=== PATIENT | male | born 1960 | race Caucasian/White ===

== ENCOUNTER → 2023-04-23 11:26 | Outpatient (BNVA) | payer MEDICARE, SELFPAY | PROVIDERS: PCP Family Medicine; Visit Provider Family Medicine | DX: Z00.00 Encounter for general adult medical examination without abnormal findings (principal); M25.511 Pain in right shoulder | CPT/HCPCS: 73030; 80053; 80061; 84439; 84443; 85025 ==

== ENCOUNTER → 2023-06-09 10:09 | Outpatient (BNVA) | payer MEDICARE, SELFPAY | PROVIDERS: PCP Family Medicine; Visit Provider Internal Medicine Cardiovascular Disease | DX: R07.9 Chest pain, unspecified (principal); I73.9 Peripheral vascular disease, unspecified; R42 Dizziness and giddiness; I65.29 Occlusion and stenosis of unspecified carotid artery; I10 Essential (primary) hypertension; K21.9 Gastro-esophageal reflux disease without esophagitis; F17.200 Nicotine dependence, unspecified, uncomplicated | CPT/HCPCS: 93005; 99204 ==

== ENCOUNTER 2023-06-22 13:21 | Outpatient (CLI) | payer MEDICARE, SELFPAY ==
--- NOTE | 2023-06-22 13:30 | USCV_ITS ---
Fredy Butterfield Age: 63 Gender: M : 1960 Exam Date: 06/22/2023 13:38 Ordering Phys: Yanelis Delaney MD ([email or web address]) Technologist: JASMINA [place] [facility] [place]: Dizziness Risk Factors: Previous Vascular Surgery: Right Brachial BP: / Left Brachial BP: / Right Left Velocity (cm/s) Spectral Plaque Velocity (cm/s) Spectral Plaque Syst/Diast Broadening Syst/Diast Broadening 94.00/ 15.50 Prox CCA 115.00/ 26.40 102.50/17.10 Mid CCA 97.90 / 28.00 83.10/ 21.80 Distal CCA 69.50 / 22.10 45.40/ 15.80 Prox ICA 70.60 / 29.80 61.80/ 20.80 Mid ICA 79.40 / 33.10 54.90/ 20.20 Distal ICA 65.10 / 27.60 92.40 ECA 76.10 0.60 ICA/CCA 0.69 Antegrade Vertebral Antegrade 33.40/ 17.70 cm/s 41.90/ 17.10 cm/s Tri Subclavian Tri 79.30 92.60 CONCLUSIONS Right ICA stenosis <50%. Mild atheromatous plaque right carotid bulb/ICA. Left ICA stenosis <50%. Mild atheromatous plaque left carotid bulb/ICA. Normal antegrade Doppler flow noted in the right vertebral artery. Normal antegrade Doppler flow noted in the left vertebral artery. Salty Monahan MD (Electronically Signed) Final Date: 23 June 2023 13:26 S
--- NOTE | 2023-06-22 15:00 | USCV_ITS ---
Fredy Butterfield Age: 63 Gender: M : 1960 Exam Date: 06/22/2023 13:38 Ordering Phys: Yanelis Delaney MD ([email or web address]) Technologist: Exam Location: [facility] [place] Indication: Leg Pain. RIGHT LEFT Brachial 106.00 mmHg Brachial 106.00 mmHg Pressure (mmHg) Waveform Pressure (mmHg) Waveform 100.00 MECHATRONICS TECHNOLOGIST 116.00 100.00 DPA 111.00 0.94 Ankle/Brachial Index 1.09 0.78 Post-Exercise Ankle Brachial Index 0.92 128.00 Pre-Exercise Toe Pressure 169.00 1.21 Pre-Exercise Toe/Brachial Index 1.59 FINDINGS Resting CONCETTA 0.94 on the right side. The post exercise CONCETTA 0.78. The resting CONCETTA was 1.09 on the left side. The postexercise CONCETTA was 0.92 Resting TBI 1.24 and on the right side and 1.59 on the left CONCLUSIONS 1. Features of mild to moderate peripheral artery disease on the right side 2. Features of mild peripheral artery disease on the left side Dr Elke Galvez MD [facility] (Electronically Signed) Final Date: 22 June 2023 18:42 S
== END 2023-06-22 13:22 | disposition home or self-care (01) ==
PROVIDERS: PCP Family Medicine; Visit Provider Internal Medicine Cardiovascular Disease
DX: I65.29 Occlusion and stenosis of unspecified carotid artery (principal); R42 Dizziness and giddiness; M79.604 Pain in right leg; M79.605 Pain in left leg; I73.9 Peripheral vascular disease, unspecified
CPT/HCPCS: 93880; 93922

== ENCOUNTER → 2023-06-29 08:38 | Outpatient (BNVA) | payer MEDICARE, SELFPAY | PROVIDERS: PCP Family Medicine; Referring Provider Family Medicine; Visit Provider Specialist | DX: M25.511 Pain in right shoulder (principal); S49.91XA Unspecified injury of right shoulder and upper arm, initial encounter; X58.XXXA Exposure to other specified factors, initial encounter | CPT/HCPCS: 73030; 99214 ==

== ENCOUNTER 2023-07-23 08:53 | Outpatient (CLI) | payer MEDICARE, SELFPAY ==
--- NOTE | 2023-07-23 09:23 | XR_ITS ---
WS: [id number] Orbits, 4 views. HISTORY: Possible metal in orbits. Evaluate prior to MRI. No radiopaque or metallic foreign body noted projected over the orbits or globes. IMPRESSION: No metallic foreign bodies. Continue with MRI.
--- NOTE | 2023-07-23 09:30 | MR_ITS ---
WS: [id number] MRI RIGHT SHOULDER HISTORY: 06/29/2023 COMPARISON: None available. TECHNIQUE: Multiplanar sequences of the shoulder joint are submitted. Moderate AC joint hypertrophy with mild encroachment upon the supraspinatus. Increased fluid along th e AC joint. Mild subacromial impingement by 5 mm osteophyte from the distal undersurface of the acrom ion. There is a very tiny amount of fluid in the subdeltoid bursa. Biceps tendon remains at the bicip ital groove. There is a slight lobulation of the extracapsular contour of the biceps tendon with incr eased fluid in the tendon sheath. Suspected partial tear. No os acromion. Increased T2 signal in the distal subscapularis tendon. Consistent with an interstitial tear involvin g the distal subscapularis tendon. The remaining rotator cuff is intact. There is no muscle atrophy o r edema. No labral tear. Mild narrowing of the glenohumeral joint. IMPRESSION: 1. Interstitial tear distal subscapularis tendon. No muscle atrophy. 2. Moderate AC joint arthropathy. 3. Mild subacromial impingement. 4. Lobulated contour of the extracapsular portion of the biceps tendon with increased fluid in the sh eath. Mild tenosynovitis and possible partial biceps tendon tear.
== END 2023-07-23 08:54 | disposition home or self-care (01) ==
PROVIDERS: PCP Family Medicine; Visit Provider Specialist
DX: S46.811A Strain of other muscles, fascia and tendons at shoulder and upper arm level, right arm, initial encounter (principal); X58.XXXA Exposure to other specified factors, initial encounter; M19.011 Primary osteoarthritis, right shoulder; Z03.823 Encounter for observation for suspected inserted (injected) foreign body ruled out; M75.41 Impingement syndrome of right shoulder; M65.811 Other synovitis and tenosynovitis, right shoulder
CPT/HCPCS: 70030; 73221

== ENCOUNTER → 2023-09-02 09:24 | Outpatient (BNVA) | payer MEDICARE, SELFPAY | PROVIDERS: PCP Family Medicine; Visit Provider Specialist | DX: M25.511 Pain in right shoulder (principal); M75.41 Impingement syndrome of right shoulder; M75.111 Incomplete rotator cuff tear or rupture of right shoulder, not specified as traumatic | CPT/HCPCS: 20610; 99214; J1100; J2795; J3301 ==

== ENCOUNTER 2023-09-08 06:00 | Outpatient (RCR) | payer MEDICARE, SELFPAY | END 2023-09-20 23:59 | disposition home or self-care (01) | LOC: GPT 06:00 | PROVIDERS: Visit Provider Specialist | DX: M75.111 Incomplete rotator cuff tear or rupture of right shoulder, not specified as traumatic (principal); S43.431D Superior glenoid labrum lesion of right shoulder, subsequent encounter; M75.21 Bicipital tendinitis, right shoulder; X58.XXXD Exposure to other specified factors, subsequent encounter | CPT/HCPCS: 97110; 97140; 97161; 97530 ==

== ENCOUNTER 2023-09-21 06:00 | Outpatient (RCR) | payer MEDICARE, SELFPAY | END 2023-10-21 23:59 | disposition home or self-care (01) | LOC: GPT 06:00 | PROVIDERS: Visit Provider Specialist | DX: M75.01 Adhesive capsulitis of right shoulder (principal) | CPT/HCPCS: 97110; 97112; 97140; 97164; 97530 ==

== ENCOUNTER → 2023-10-14 13:31 | Outpatient (BNVA) | payer MEDICARE, SELFPAY | PROVIDERS: Visit Provider Specialist | DX: M75.41 Impingement syndrome of right shoulder (principal); M75.111 Incomplete rotator cuff tear or rupture of right shoulder, not specified as traumatic | CPT/HCPCS: 99213 ==

== ENCOUNTER → 2023-10-20 09:25 | Outpatient (BNVA) | payer MEDICARE, SELFPAY | PROVIDERS: Visit Provider Nurse Practitioner Family | DX: I10 Essential (primary) hypertension (principal); I73.9 Peripheral vascular disease, unspecified; F17.290 Nicotine dependence, other tobacco product, uncomplicated | CPT/HCPCS: 36415; 80048; 99214 ==

== ENCOUNTER 2023-10-22 06:00 | Outpatient (RCR) | payer MEDICARE, SELFPAY | END 2023-11-19 23:59 | disposition home or self-care (01) | LOC: GPT 06:00 | PROVIDERS: Visit Provider Specialist | DX: M75.111 Incomplete rotator cuff tear or rupture of right shoulder, not specified as traumatic (principal); M75.21 Bicipital tendinitis, right shoulder; S43.431D Superior glenoid labrum lesion of right shoulder, subsequent encounter; X58.XXXD Exposure to other specified factors, subsequent encounter | CPT/HCPCS: 97110; 97112; 97140 ==

== ENCOUNTER 2023-11-20 06:00 | Outpatient (RCR) | payer MEDICARE, SELFPAY | END 2023-12-20 23:59 | disposition home or self-care (01) | LOC: GPT 06:00 | PROVIDERS: PCP Family Medicine; Visit Provider Specialist | DX: M75.01 Adhesive capsulitis of right shoulder (principal) | CPT/HCPCS: 97110; 97140 ==

== ENCOUNTER 2023-12-21 06:00 | Outpatient (RCR) | payer MEDICARE, SELFPAY | END 2023-12-24 23:59 | disposition home or self-care (01) | LOC: GPT 06:00 | PROVIDERS: PCP Family Medicine; Visit Provider Specialist | DX: M75.01 Adhesive capsulitis of right shoulder (principal) | CPT/HCPCS: 97110 ==

== ENCOUNTER → 2024-04-19 15:00 | Outpatient (BNVA) | payer MEDICARE, SELFPAY | PROVIDERS: PCP Family Medicine; Visit Provider Internal Medicine | DX: I73.9 Peripheral vascular disease, unspecified (principal); R42 Dizziness and giddiness; I10 Essential (primary) hypertension; K21.9 Gastro-esophageal reflux disease without esophagitis; I65.29 Occlusion and stenosis of unspecified carotid artery; Z72.0 Tobacco use | CPT/HCPCS: 99214 ==

== ENCOUNTER → 2024-05-17 10:00 | Outpatient (BNVA) | payer MEDICARE, SELFPAY | PROVIDERS: PCP Family Medicine; Visit Provider Nurse Practitioner Family | DX: L50.9 Urticaria, unspecified (principal) | CPT/HCPCS: 86003; 86008 ==

== ENCOUNTER → 2024-10-24 15:31 | Outpatient (BNVA) | payer MEDICARE, SELFPAY | PROVIDERS: PCP Family Medicine; Visit Provider Internal Medicine | DX: I73.9 Peripheral vascular disease, unspecified (principal); I10 Essential (primary) hypertension; I65.29 Occlusion and stenosis of unspecified carotid artery | CPT/HCPCS: 99214 ==

== ENCOUNTER → 2024-11-01 08:30 | Outpatient (BNVA) | payer MEDICARE, SELFPAY | PROVIDERS: PCP Family Medicine; Visit Provider Internal Medicine | DX: I73.9 Peripheral vascular disease, unspecified (principal) | CPT/HCPCS: 80048; 85025 ==

== ENCOUNTER 2024-11-08 07:02 | Outpatient (CLI) | payer MEDICARE, SELFPAY ==
--- NOTE | 2024-11-08 07:10 | XACV_ITS ---
Ht: 178 cm Wt: 93 kg BSA: 2.17 m2 Any Known Allergies: Other Gender: Male : 1960 Exam Type: Invasive Peripheral Vascular Procedure(s): Procedure Description: Peripheral Cath Diagnostic Procedure Procedure Description: Abdominal aortic angiography Procedure Description: Lower extremities' angiography Procedure Description: Peripheral IVUS Exam Priority: Routine Abdominal Diagnostic Findings Distal abdominal aorta has mild to moderate disease. Lower Extremity Diagnostic Findings INDICATION: Severe lifestyle limiting claudication. Right lower extremity findings: Right common iliac artery has significant 60-70% stenosis at ostium. Difficult to visualize because of overlap from side branches. Gradient across the blockage performed after crossing the stenosis with catheter and has peak to peak gradient of 55-60 mmHg. Right external iliac artery is patent. Right internal iliac is patent. Right common femoral artery is patent. Right profunda is patent. Right SFA is patent. Right popliteal artery is patent. Below the knee vessels are obscured by prosthesis however good runoff to the foot noted.. Left lower extremity findings: Left common iliac artery is patent. Left external iliac artery is patent. Left common femoral artery is patent. Left profunda is patent. Left SFA is patent. Left popliteal artery is patent. Left below the knee vessels have slow flow however appear patent.. Lower Extremity Interventional Findings After diagnostic images, we did perform IVUS of the iliac arteries, however given it was coronary IVUS catheter optimal images could not obtained. We then confirmed severe stenosis with pull back of the catheter. This consfirmed significant stenosis with pull gradient across right common iliac artery of 55-60mmHg. Conclusions Patient has significant right ostial common iliac artery stenosis. This is confirmed with pressure gradient across stenosis. Given patient's renal dysfunction, we will stage procedure to stent ostial right common iliac artery. Recommendations Continue current medications. We will proceed with intervention of right common iliac artery in 2-3 weeks. Will check BMP as outpatient prior to procedure to assess renal function prior to procedure. Hemodynamic Data Phase:Rest AO : 138.0 / 76.0 ( 104.0 ) @ 9:27:00 AM 142.0 / 74.0 ( 104.0 ) @ 9:34:00 AM 160.0 / 73.0 ( 108.0 ) @ 9:53:00 AM 107.0 / 71.0 ( 88.0 ) @ 9:54:00 AM 172.0 / 81.0 ( 116.0 ) @ 9:58:00 AM 158.0 / 82.0 ( 113.0 ) @ 9:59:00 AM Access Site Site: Left Femoral artery Sheath Size: 6 Fr Hemost... Method: Mynx Hemost... Success: Successful Site: Right Femoral artery Sheath Size: 6 Fr Hemost... Method: Mynx Hemost... Success: Successful Procedure Details Findings Procedure Consent Obtained. Pre-Procedure Time Out. Identified patient by full name and date of as verbalized by the patient/guarantor. Does the consent match the physician's order: Yes. Accurate & Complete Informed Consent: Yes. Inpatient/Outpatient History & Physical on Chart: Yes. If H&P is completed, is and addenduem needed: No; If yes, is the addendum complete: N/A. Visualize and Verify Site with Patient/Guarantor: N/A. Relevant Radiology Images available: Yes. Pre-op teaching completed and patient verbalized understanding. The risks, benefits, and alternatives of sedation and/or procedure were discussed by physician. The patient agrees to continue. Procedure started. A 20 gauge IV was started in the left anticubital using aseptic technique. IV Fluids: 0.9% NaCl at KVO. 0 mL infused prior to pit laborer. Pre Procedural Pulses: right dorsalis pedis was Doppled. Pre Procedural Pulses: left dorsalis pedis was 2+. Pre Procedural Pulses: bilateral posterior tibial was Doppled. Pre Procedural Pulses: bilateral radial was 3+. Oxygen started at 2liters/min via nasal canula. bilateral groins was prepped with chloroprep then draped in the usual sterile fashion. Physician notified. Baseline sample Acquired. HR: 71 BPM. Physician arrived. Physician scrubbed in. Immediate Pre-Procedure Time Out. Correct Patient: Yes; Correct Procedure: Yes; Correct Site: Yes; Correct Patient Position: Yes; Correct Supplies: Yes; Dried Flammable Prep: Yes; Blood Products Available: N/A;. Lidocaine 1% infiltrated to the left groin. Arterial access obtained with micropuncture set. A 5FrFr UF catheter in over wire. Wire out. Glidewire out. Abdominal aortogram performed in AP @ 10 mL/sec for a total of 30 mL. Glidewire inserted. Wire out. DSA performed. Catheter out. Lidocaine 1% infiltrated to the right groin. Ultrasound used to obtain access. Arterial access obtained with micropuncture set. A 5FrFr UF catheter in over the glidewire. Glidewire out. Runthrough wire inserted. Catheter out OTW. Wire out. Standard wire inserted. Wire out. Runthrough wire inserted. Catheter out OTW. IVUS catheter inserted OTW. IVUS measurements obtained. IVUS catheter out OTW. A 5 barbadian JR4 catheter in over wire through the right femoral sheath. A 5 barbadian JR4 catheter in over wire through the left femoral sheath. Catheter out. Sheath injected in Right common femoral artery and runoff performed. Sheath injected in Left common femoral artery and runoff performed. A Right femoral angiogram was performed to determine safe placement of closure device. A Left femoral angiogram was performed to determine safe placement of closure device. A Mynx was successful obtaining hemostatsis at the Left Femoral artery insertion site. A Mynx was successful obtaining hemostatsis at the Right Femoral artery insertion site. Post Procedure: Pulses reassessed and unchanged. PERRLA. Strong, equal hand signaler bilaterally. No VTE prophylaxis required. Medication's Wasted: Other = Fentanyl 25mcg Versed 1 mg. Total IV fluids: 310 mL. Complications: None. Post-op diagnosis: PAD. Estimated blood loss: 5mL-10mL. Responsiveness - Normal response to verbal stimuli; alert and oriented, PERRLA. Airway - Unaffected, no intervention required; spontaneous ventilation. Circulation: W/N/L, pulses unchanged. Nausea/Vomiting: No. Vital chart was stopped. Procedure completed. Vital chart was stopped. Patient transferred by bed to 1st floor. Procedure Medications Start: 9:11 AM Stop: 9:11 AM Medication: Benadryl Amount: 25 mg Route: I.V. Start: 9:11 AM Stop: 9:11 AM Medication: 0.9% Saline Amount: 250 ml Route: I.V. bolus Start: 9:17 AM Stop: 9:17 AM Medication: Versed Amount: 1 mg Route: I.V. Start: 9:17 AM Stop: 9:17 AM Medication: Fentanyl Amount: 50 mcg Route: I.V. Start: 9:56 AM Stop: 9:56 AM Medication: Angiomax (5mg/mL) Amount: 70 ml Route: I.V. bolus Start: 10:20 AM Stop: 10:20 AM Medication: Fentanyl Amount: 25 mcg Route: I.V. I, the attending physician, have reviewed and verified all procedure medications. Yes, all medications given per verbal order History/Risk Factors Hypertension: Yes Dyslipidemia: No Peripheral Arterial Disease (PAD): Yes Obesity: No Renal Disease: No Prior Interventions PCI: No CABG: No Valve Surgery: No Report Signatures Finalized by Corwin Calvin MD on 11/16/2024 12:09 PM
[2024-11-08] MEDS: aspirin 325 mg Tablet PO (07:25)
[2024-11-08 07:40] VITALS: BP 162/81; PULSE 83; RESP 16; TEMP 36.9; O2SAT 97
--- NOTE | 2024-11-08 09:00 | W.PM.OPSUD ---
Surgery/Procedure H&P Update DATE OF PROCEDURE: November 08, 2024 DATE H&P PERFORMED: 10/24/24 H&P UPDATE INFORMATION: I have reviewed H&P completed within last 30 days, I have examined patient prior to procedure and No changes to prior documentation PREOP DIAGNOSIS: Severe lifestyle limiting claudication PRIMARY INDICATION FOR PROCEDURE: Severe lifestyle limiting claudication PLANNED PROCEDURE: Operation Date: 11/08/24 08:30 Proposed Procedures p Peripheral Diagnostic - Peripheral Angiogram(Not Applicable) - Corwin Calvin M.D Possible percutaneous intervention PATIENT REASSESSED PRIOR TO SEDATION, WITH NO CHANGE NOTED: Yes PHYSICAL EXAM: alert, oriented x 3, clear to auscultation bilaterally and regular rate & rhythm AIRWAY EVAL/ANESTHESIA PLAN: normal airway, ASA III, Local Anesthesia, Risks, benefits & alternatives of sedation and/or procedure discussed and Patient agrees to continue as planned ADDITIONAL INFORMATION: Moderate sedation
[2024-11-08 10:00] VITALS: PULSE 72; RESP 16; O2SAT 97
--- NOTE | 2024-11-08 11:26 | PC.NURSE ---
patient arrived on the floor at 1100am. Report taken by RENETTA Mack. Hard spot on left leg noted and labor relations officer is aware. Circled to check if the area is growing.
== END 2024-11-08 16:26 | disposition home or self-care (01) ==
LOC: CCL 07:09 → CSU 10:53
PROVIDERS: PCP Family Medicine; Visit Provider Internal Medicine
DX: I70.211 Atherosclerosis of native arteries of extremities with intermittent claudication, right leg (principal); I10 Essential (primary) hypertension; K21.9 Gastro-esophageal reflux disease without esophagitis
CPT/HCPCS: 36415; 75625; 75716; 92978; 96374; 99152; 99153; C1753; C1760; C1769; C1887; C1894; G0269; J1200; J2250; J3010; J7030; Q0163; Q9967

== ENCOUNTER 2024-11-18 08:21 | Outpatient (CLI) | payer MEDICARE, SELFPAY ==
--- NOTE | 2024-11-18 08:30 | USCV_ITS ---
Fredy Butterfield Age: 64 Gender: M : 1960 Exam Date: 11/18/2024 08:39 Ordering Phys: Corwin Calvin M.D ([email or web address]) Technologist: [place] [facility] [place]: sob BP: 158 / 106 HR: 67 Rhythm: Sinus Technical Quality: Adequate MEASUREMENTS (Male / Female) Normal Values 2D ECHO LVOT Diameter 2.0 cm LV Ejection Fraction MOD 4C 68.6 % LV Ejection Fraction MOD 2C 65.9 % LV Ejection Fraction 2C AL 64.7 % LA Diameter 3.1 cm RA Systolic Volume 4C AL 40.0 ml RA Systolic Volume 4C MOD 38.1 ml LA Sys Volume AL 46.8 cm cubed LA Sys Volume Index AL 21.6 cm cubed/m squared Aorta at Sinotubular Diameter 2.1 cm IVC Diameter 1.6 cm M-MODE LA Ao Ratio MM 1.3 AV Cusp Separation MM 1.3 cm DOPPLER AV Peak Velocity 196.0 cm/s LVOT Peak Velocity 108.0 cm/s AV Area Cont Eq vti 1.9 cm squared AV Area Cont Eq pk 1.8 cm squared MV Peak Velocity 76.0 cm/s MV Area PHT 3.8 cm squared Mitral E to A Ratio 1.1 TV Peak Velocity 157.5 cm/s TR Peak Velocity 171.0 cm/s TR Peak Gradient 11.7 mmHg TV Peak E Velocity 82.0 cm/s PV Peak Velocity 91.0 cm/s FINDINGS Left Ventricle Left ventricle is normal in size. LV systolic function is normal with EF of 60-65%. No regional wall motion abnormalities are seen. Right Ventricle Normal in size and function Right Atrium Normal in size Left Atrium Normal in size Mitral Valve Structurally normal mitral valve. Mild mitral regurgitaiton. Aortic Valve Aortic valve is thickened. Mild aortic stenosis with aortic valve area 1.92 cm squared and mean gradient of 8 mmHg Tricuspid Valve Insufficient TR jet to evaluate RVSP Pulmonic Valve Not well visualized Pericardium Normal Aorta Normal in size IVC Appears to be normal CONCLUSIONS LV systolic function is normal with EF of 60-65% Mild mitral regurgitation Mild aortic stenosis No comparison studies are available. Corwin Calvin MD (Electronically Signed) Final Date: 27 November 2024 09:41 S
== END 2024-11-18 08:22 | disposition home or self-care (01) ==
LOC: RAD 08:24
PROVIDERS: PCP Nurse Practitioner Family; Visit Provider Internal Medicine
DX: R06.02 Shortness of breath (principal); I34.0 Nonrheumatic mitral (valve) insufficiency; I35.8 Other nonrheumatic aortic valve disorders; I35.0 Nonrheumatic aortic (valve) stenosis
CPT/HCPCS: 93306

== ENCOUNTER → 2024-11-22 08:23 | Outpatient (BNVA) | payer MEDICARE, SELFPAY | PROVIDERS: PCP Nurse Practitioner Family; Visit Provider Internal Medicine | DX: I10 Essential (primary) hypertension (principal); I73.9 Peripheral vascular disease, unspecified | CPT/HCPCS: 80048 ==

== ENCOUNTER → 2025-01-11 08:57 | Outpatient (BNVA) | payer MEDICARE, SELFPAY | PROVIDERS: PCP Nurse Practitioner Family; Visit Provider Internal Medicine | DX: I73.9 Peripheral vascular disease, unspecified (principal); I10 Essential (primary) hypertension; I65.29 Occlusion and stenosis of unspecified carotid artery; K21.9 Gastro-esophageal reflux disease without esophagitis; R42 Dizziness and giddiness; Z79.82 Long term (current) use of aspirin; F17.290 Nicotine dependence, other tobacco product, uncomplicated | CPT/HCPCS: 99214 ==

== ENCOUNTER 2025-01-18 16:04 | Observation (INO) | payer MEDICARE, SELFPAY ==
[2025-01-18] VITALS (11 sets, daily range): BP systolic 102–150; BP diastolic 70; PULSE 77–103; RESP 15–32; TEMP 36.4–37; O2SAT 96; BMI 27.2
[2025-01-18] MEDS: sodium chloride 0.9% 1,000 ML 100 ML IV (17:11)
--- NOTE | 2025-01-18 17:28 | P.HP_ITS ---
<Statement entered by Corwin Calvin M.D - 01/20/25 10:18> Patient was evaluated and cared for in conjunction with an advanced practice practitioner.? I personally examined the patient and reviewed the chart and all pertinent data including imaging, telemetry, and laboratory results.? I discussed the patient in detail with the advanced practice practitioner.? Please see? their note for complete H&P, testing results and agreed upon plan of care for the patient. Patient will be hydrated overnight for peripheral intervention tomorrow. GENERAL: Patient is alert, awake and oriented x3. HEART: Regular S1 and S2 LUNGS: Clear to auscultate bilaterally. CENTRAL NERVOUS SYSTEM: Grossly nonfocal. EXTREMITIES: Diminished pulses on right foot. Providers/Chief Complaint Admitting Physician: Corwin Calvin M.D Primary Care Provider: Elisa Salgado NP Chief Complaint: I73.9 Pre-surgery History of Present Illness This is a very pleasant 64-year-old gentleman who previously had a peripheral angiogram demonstrating severe ostial right common iliac disease with significant gradient across it. Plan was for staged intervention as his kidney function is not normal. He had an echo previously that showed mild aortic stenosis. His main complaint is claudication in the right buttocks and hip area with a few steps that is relieved with rest. He does not have any wounds. No signs of ischemia. Palpable PT bilaterally. CONCETTA in the past was 0.78.Patient was admitted for prehydration prior to procedure. This will be performed tomorrow.Denies any lower extremity pain at this time. Review of Systems Narrative: Consitutional: denies fever, chills, body aches, or changes in appetite, denies abnormal weight loss Eyes: Denies changes in vision Card: Denies chest pain, palpitations, irregular heart rhythm, edema, syncope, shortness of breath, orthopnea, leg pain with exertion Resp: Denies shortness of breath, denies hemoptysis, denies cough GI: denies abdominal pain, denies nausea or voimting, denies blood in stool : denies blood in urine, denies dysuria Musc: Reports right lower extremity claudication with a few steps relieved with rest Skin: Denies rash, lesions, or wounds, denies changes to skin color Neuro: Denies nubmness in extremities, h/a, s/s of stroke Gómez: Denies easy bruiding/bleeding All: Denies s/s of allergies Medications/Allergies Home Medications ?Medication ?Instructions ?Recorded ?Confirmed ?Last Taken ?Type cilostazol 50 mg tablet 50 mg PO BID #180 tabs 04/1901/11/25 11/07/24 Rx epinephrine 0.3 mg/0.3 mL 0.3 mg (0.3 mL) IM ONCE PRN 06/03/24 01/11/25 Unknown Rx injection, auto-injector anaphylaxis #2 ea lisinopril 10 mg tablet 10 mg PO DAILY 90 days #90 t abs 09/12/24 01/11/25 11/07/24 Rx cyclobenzaprine 10 mg tablet 10 mg PO TID PRN muscle s pasm #30 09/29/24 01/11/25 Unknown Rx tabs aspirin 81 mg capsule 81 mg PO DAILY #30 caps 10/2201/11/25 Unknown Rx famotidine 40 mg tablet 40 mg PO DAILY #90 tabs 10/2301/11/25 Unknown Rx omeprazole 20 mg tablet,delayed 20 mg PO DIRECTED 0 01/11/25 01/11/25 Unknown History release fexofenadine 180 mg tablet 180 mg PO DAILY 01/18/25 Unknown History Allergies Allergy/AdvReac Type Severity Reaction Status Date / Time peanut Allergy Unknown Verified 01/18/25 16:21 soy Allergy Unknown Verified 01/18/25 16:21 alpha gal Allergy hives Uncoded 01/11/25 09:24 PFSH Acute PFSH: Medical History Carotid stenosis GERD (gastroesophageal reflux disease) Fracture of leg right PAD (peripheral artery disease) Surgical History History of appendectomy Previous back surgery History of tonsillectomy Family History Father Lung disease Social History Smoking and tobacco/nicotine status: current every day tobacco/nicotine user (vape) e-cigarettes E-Cigarette Details: vaporizer device Alcohol intake: never Substance/Drug Use: never Vitals/I&O/Wt Weight last 48 hrs Weight 190 lb Physical Exam Narrative: General: No apparent distress, healthy appearing, well nourished HENMT: normoceophalic Neck: No carotid bruit bilaterally Muskuloskeletal: Full ROM Lymphatic: no lymphedema noted Respiratory: Normal respiratory effort, clear to auscultation bilaterally throughout all lung keen, no use of accessory muscles Cardio: No JVD, regular rate, regular rhythm, S1 S2 normal, no murmurs, peripheral pulses 2+ radial palpated bilaterally, 2+ PT palpated bilaterally GI: Normal to inspection, nondistended Extremities: Full ROM, normal, normal capillary refill, no cyanosis or edema Neuro: Alert and oriented x4, no focal motor deficits Psych: Affect normal, denies suicidal ideation, mental status grossly normal Skin: No rashes or lesions noted, no wounds A&P Assessment and plan (1) PAD (peripheral artery disease): (2) Hypertension: (3) Intermittent claudication: (4) Chronic kidney disease: Plan Patient has significant right ostial common iliac artery stenosis. This was previously confirmed via lower extremity angiogram. Given patient's renal dysfunction we have admitted patient today to prehydrated and we will plan staged procedure tomorrow for the right common iliac artery. PDMP PDMP Reviewed: Not Reviewed Attestations Medical Necessity Statement*: Patient stay expected to cross 2 midnights due to severe PAD requiring peripheral intervention in the right common iliac. Coding Level of Care Code Acute Code for [facility] Diagnoses PAD (peripheral artery disease) I73.9 Primary hypertension I10 Hypertension type: primary hypertension Intermittent claudication I73.9 Chronic kidney disease, unspecified CKD stage N18.9 Chronic kidney disease stage: unspecified stage
[2025-01-18 17:50] LABS: Alanine Aminotransferase 11 U/L (0-41); Albumin Level 4.3 g/dL (3.5-5.2); Alkaline Phosphatase 81 U/L (40-130); Anion Gap 17.2 (5-19); Aspartate Amino Transferase 21 U/L (0-40); Blood Urea Nitrogen 25 mg/dL (8-23); Calcium 9.3 mg/dL (8.5-10.5); Carbon Dioxide 22 mmol/L (22-29); Chloride 106 mmol/L (98-107); Creatinine Clr Calc Pharmacy 50.2797; Globulin 2.9 g/dL (1.3-4.6); Glomerular Filtration Rate 43.5 mL/min (90-130); Glucose 109 mg/dL (65-115); Osmolality Calculated 297 mOsm/kg (285-295); Potassium 4.2 mmol/L (3.5-5.1); Sodium 141 mmol/L (136-145); Total Bilirubin 0.5 mg/dL (0.15-1.2); Total Protein 7.2 g/dL (6.6-8.7)
[2025-01-18 20:01] LABS: Magnesium 2.1 mg/dL (1.7-2.3)
[2025-01-19] VITALS (49 sets, daily range): BP systolic 98–176; BP diastolic 58–122; PULSE 48–93; RESP 12–30; TEMP 36.4–37; O2SAT 93–98
[2025-01-19] MEDS: sodium chloride 0.9% 1,000 ML 100 ML IV ×3 (03:23→22:04)
[2025-01-19 05:17] LABS: Basophils # 0.1 10^3/uL (0.0-0.1); Basophils % 1.3 %; Eosinophils # 0.4 10^3/uL (0.0-0.8); Eosinophils % 5.9 %; Hematocrit 40.4 % (37-53); Lymphocytes # 1.8 10^3/uL (0.8-4.8); Mean Corpuscular HGB Conc 32.7 g/dL (30-55); Mean Corpuscular Hemoglobin 31.7 pg (27-33); Mean Corpuscular Volume 96.9 fl (82-101); Mean Platelet Volume 10.8 fL (7.4-10.4); Monocytes # 0.6 10^3/uL (0.2-0.9); Monocytes % 9.9 %; Neutrophils # 3.36 10^3/uL (1.8-7.7); Neutrophils % 53.6 %; Nucleated Red Blood Cells % 0 %; Platelet Count 155 10^3/cmm (157-399); Red Blood Count 4.17 10^6/uL (3.85-5.65); Red Cell Distribution Width 12.7 % (12.1-15.1); White Blood Count 6.27 10^3/uL (3.29-11.43)
[2025-01-19 05:39] LABS: Anion Gap 13.1 (5-19); Blood Urea Nitrogen 21 mg/dL (8-23); Calcium 8.6 mg/dL (8.5-10.5); Carbon Dioxide 23 mmol/L (22-29); Chloride 109 mmol/L (98-107); Creatinine Clr Calc Pharmacy 55.9191; Glomerular Filtration Rate 46.8 mL/min (90-130); Glucose 101 mg/dL (65-115); Osmolality Calculated 295 mOsm/kg (285-295); Potassium 4.1 mmol/L (3.5-5.1); Sodium 141 mmol/L (136-145)
--- NOTE | 2025-01-19 06:19 | XACV_ITS ---
Ht: 178 cm Wt: 90 kg BSA: 2.12 m2 Any Known Allergies: Other Gender: Male : 1960 Exam Type: Invasive Peripheral Vascular Procedure(s): Procedure Description: Peripheral Cath Diagnostic Procedure Procedure Description: Abdominal aortic angiography Procedure Description: Peripheral vascular Intervention Procedure Description: PV Balloon Procedure Description: PV Stent Exam Priority: Routine Abdominal Diagnostic Findings Distal abdominal aorta: Patent. Has mild to moderate plaque. Lower Extremity Diagnostic Findings INDICATION: Severe lifestyle claudication of right lower extremity. 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 This is a staged intervention procedure. For full diagnostic report, please refer to angiogram from 11/08/2024. Ostial right common iliac artery has significant eccentric stenosis. This was confirmed via gradient across the stenosis. Lower Extremity Interventional Findings Procedure detail: We obtained access in bilateral common femoral arteries. Decision was made to perform kissing stent placement bilaterally. Both iliac arteries were wired. We performed intravascular lithotripsy with shockwave balloon on the right common iliac artery with 8.0x60mm balloon and balloon angioplasty with 7.0x60mm ARMADA balloon on left common iliac artery. This was followed by placement of kissing Omnilink stents measuring 9.0 x 39 mm bilaterally. At this time as UF catheter was coming out, there was some indication of stent deformation of the proximal edge. We post dilation the ostia of the stents bilaterally with 7.0 balloons. Final angiogram was performed that showed excellent stent expansion, no residual stenosis and excellent flow bilaterally. Wires were removed and sheaths sutured in place. Patient left the hatchery laborer in a stable condition. . Conclusions Severe ostial right common iliac artery stenosis s/p kissing stent placement in bilateral common iliac arteries. Right Proximal Common Iliac Artery was treated with two Balloon and Stent. Left Proximal Common Iliac Artery was treated with two Balloon and Stent. Recommendations Dual antiplatelet therapy with aspirin and plavix. Outpatient cardiology follow up in 2 weeks. Hemodynamic Data Phase:Rest AO : 136.0 / 71.0 ( 100.0 ) @ 10:04:00 AM 182.0 / 81.0 ( 122.0 ) @ 10:48:00 AM Access Site Site: Right Femoral artery Sheath Size: 6 Fr Hemost... Method: Suture Hemost... Success: Successful Site: Left Femoral artery Sheath Size: 6 Fr Hemost... Method: Suture Hemost... Success: Successful Procedure Details Findings Procedure Consent Obtained. Pre-Procedure Time Out. Identified patient by full name and date of as verbalized by the patient/guarantor. Does the consent match the physician's order: Yes. Accurate & Complete Informed Consent: Yes. Inpatient/Outpatient History & Physical on Chart: Yes. If H&P is completed, is and addenduem needed: No; If yes, is the addendum complete: N/A. Visualize and Verify Site with Patient/Guarantor: N/A. Relevant Radiology Images available: Yes. The risks, benefits, and alternatives of sedation and/or procedure were discussed by physician. The patient agrees to continue. Procedure started. Current diagnosis: PVD. PERRLA. Strong, equal hand sleeping room cleaner bilaterally. Lungs clear x 5 lobes. IV Site on Arrival: 20 gauge in the left anticubital. A 20 gauge IV was started in the right anticubital using aseptic technique. IV Fluids: 0.9% NaCl at KVO. 500 mL infused prior to hatchery laborer. Pre Procedural Pulses: bilateral posterior tibial was Doppled. Pre Procedural Pulses: bilateral dorsalis pedis was Doppled. Oxygen started at 2liters/min via nasal canula. bilateral groins was prepped with chloroprep then draped in the usual sterile fashion. Physician notified. Baseline sample Acquired. HR: 55 BPM. Patient's family unavailable. The patient stated that he would update his family on his own after recovery. Equipment: 6F - Femoral. Cardiac Cath Pack. ACIST Manifold Kit Model BT 2000. Heparinized Saline (2 units/mL), 1000 mL bag. Kit, Micropuncture. Physician arrived. Physician scrubbed in. Immediate Pre-Procedure Time Out. Correct Patient: Yes; Correct Procedure: Yes; Correct Site: Yes; Correct Patient Position: Yes; Correct Supplies: Yes; Dried Flammable Prep: Yes; Blood Products Available: N/A;. Lidocaine 1% infiltrated to the right groin. Arterial access obtained with micropuncture set. Lidocaine 1% infiltrated to the left groin. Arterial access obtained with micropuncture set. Lidocaine 1% infiltrated to the left groin. Sheath upsized to a 7 Fr. Sheath upsized to a 7 Fr. A 5 Fr UF catheter in over the glidewire on the left. Glidewire out on the left. Abdominal aortogram performed in AP @ 10 mL/sec for a total of 30 mL. Abdominal aortogram performed in AP @ 10 mL/sec for a total of 20 mL in DSA. UF Catheter removed over the glidewire. Glidewire left in on the left. 300cm Runthrough guidewire in through the sheath on the right. Inflation number : 1 A AB ARMADA 35 OTW [id number] was prepped and advanced across the Ostial Common Iliac, Left , then inflated to 2 JUNE for 0:50 seconds. Inflation number : 1 A Shockwave M5 Peripheral Intravascular Lothotripsy Catheter 8.0mm x 60mm was prepped and advanced across the Ostial Common Iliac, Right , then inflated to 2 JUNE for 0:51 seconds. Inflation number: 2 The AB ARMADA 35 OTW [id number] was reinflated across the Ostial Common Iliac, Left, to 2 JUNE for 0:33 seconds. Inflation number: 2 The Shockwave M5 Peripheral Intravascular Lothotripsy Catheter 8.0mm x 60mm was reinflated across the Ostial Common Iliac, Right, to 2 JUNE for 0:34 seconds. Inflation number: 3 The AB ARMADA 35 OTW [id number] was reinflated across the Ostial Common Iliac, Left, to 2 JUNE for 0:40 seconds. Inflation number: 3 The Shockwave M5 Peripheral Intravascular Lothotripsy Catheter 8.0mm x 60mm was reinflated across the Ostial Common Iliac, Right, to 3 JUNE for 0:40 seconds. Inflation number: 4 The AB ARMADA 35 OTW [id number] was reinflated across the Ostial Common Iliac, Left, to 2 JUNE for 0:32 seconds. Inflation number: 4 The Shockwave M5 Peripheral Intravascular Lothotripsy Catheter 8.0mm x 60mm was reinflated across the Ostial Common Iliac, Right, to 3 JUNE for 0:32 seconds. Inflation number: 5 The AB ARMADA 35 OTW [id number] was reinflated across the Ostial Common Iliac, Left, to 2 JUNE for 0:35 seconds. Inflation number: 5 The Shockwave M5 Peripheral Intravascular Lothotripsy Catheter 8.0mm x 60mm was reinflated across the Ostial Common Iliac, Right, to 3 JUNE for 0:35 seconds. Inflation number: 6 The AB ARMADA 35 OTW [id number] was reinflated across the Ostial Common Iliac, Left, to 2 JUNE for 0:37 seconds. Inflation number: 6 The Shockwave M5 Peripheral Intravascular Lothotripsy Catheter 8.0mm x 60mm was reinflated across the Ostial Common Iliac, Right, to 3 JUNE for 0:38 seconds. Balloons out over the wire. Runthrough guidewire out on the right. Glidewire in through the sheath on the right. Inflation Number : 7 A Omnilink Elite Vascular Balloon-Expandabel Stent System 9.0mm x 39mm x 135cm -Lot Number# [id number] Exp. was prepped and advanced across the Ostial Common Iliac, Left. The stent was deployed at 11 JUNE for 1:07 seconds. Inflation Number : 7 A Omnilink Elite Vascular Balloon-Expandable Stent System 9.0mm x 39mm x 135cm -Lot Number# [id number]. Exp. was prepped and advanced across the Ostial Common Iliac, Right. The stent was deployed at 11 JUNE for 1:08 seconds. Stent balloons out over the glidewire. A 5Fr UF catheter in over the glidewire on the left. UF Catheter removed over the glidewire on the left. A 5Fr UF catheter in over the glidewire on the right. Glidewire out on the right. Abdominal aortogram performed in AP @ 10 mL/sec for a total of 20 mL in DSA. Aortic Sample taken: AO 182/81(122), HR: 63 BPM, SpO2: 93%, Respiration: 16. Standard wire in right to pullback the UF to the Iliac. UF Catheter removed over the standard wire on the right. Glidewire in through the sheath on the left. A 5Fr RIM catheter in over glidewire on the left. Glidewire out on the left. Abdominal aortogram performed in AP @ 10 mL/sec for a total of 20 mL in DSA. Abdominal aortogram performed in AP @ 10 mL/sec for a total of 30 mL in DSA. Glidewire in through the sheath on the right. Glidewire in through the RIM catheter on the left. RIM catheter removed over the glidewire on the left. Inflation number : 8 A AB ARMADA 35 OTW [id number] was prepped and advanced across the Ostial Common Iliac, Left , then inflated to 6 JUNE for 0:34 seconds. Inflation number : 8 A AB ARMADA 35 OTW [id number] was prepped and advanced across the Ostial Common Iliac, Right , then inflated to 6 JUNE for 0:34 seconds. Balloons out over wire. A 5Fr RIM catheter in over glidewire on the right. Glidewire out on the right. Abdominal aortogram performed in AP @ 10 mL/sec for a total of 30 mL in DSA. RIM Catheter removed over the glide wire on right. Glidewire out on the left and right. Dr. Calvin scrubbed out. A Suture was successful obtaining hemostatsis at the Right Femoral artery insertion site. A Suture was successful obtaining hemostatsis at the Left Femoral artery insertion site. Sheath(s) sutured into position with 2-0 silk and sterile 4x4's and Op-site applied over the site. No oozing or signs and symptoms of hematoma noted. Arterial sheath flushed and connected to tranducer and pressure bag with saline. Post Procedure: Pulses reassessed and unchanged. A 16Fr willis catheter was inserted without resistance maintaining sterile technique. Bag to gravity with clear urine returning. PERRLA. Strong, equal hand sleeping room cleaner bilaterally. No VTE prophylaxis required. Medication's Wasted: Other = Benadryl 25 mg. Total IV fluids: 87 mL. Post-op diagnosis: Right ostial common iliac s/p shockwave with stenting x 1, left ostial common iliac stenting x 1. Complications: none. Estimated blood loss: 5mL-10mL. Responsiveness - Normal response to verbal stimuli; alert and oriented, PERRLA. Airway - Unaffected, no intervention required; spontaneous ventilation. Circulation: W/N/L, pulses unchanged. Nausea/Vomiting: No. Procedure completed. Patient transferred by bed to 1st floor. Vital chart was stopped. Procedure Medications Start: 8:40 AM Stop: 8:40 AM Medication: Benadryl Amount: 25 mg Route: I.V. Start: 8:47 AM Stop: 8:47 AM Medication: Versed Amount: 1 mg Route: I.V. Start: 8:47 AM Stop: 8:47 AM Medication: Fentanyl Amount: 50 mcg Route: I.V. Start: 9:06 AM Stop: 9:06 AM Medication: Angiomax (5mg/mL) Amount: 13.5 ml Route: I.V. bolus Start: 9:06 AM Stop: 9:06 AM Medication: Angiomax (5mg/mL) Amount: 31.5 ml/hr Route: I.V. bolus Start: 9:29 AM Stop: 9:29 AM Medication: Fentanyl Amount: 25 mcg Route: I.V. Start: 9:43 AM Stop: 9:43 AM Medication: Versed Amount: 1 mg Route: I.V. Start: 9:43 AM Stop: 9:43 AM Medication: Fentanyl Amount: 25 mcg Route: I.V. Start: 10:17 AM Stop: 10:17 AM Medication: Aspirin Amount: 325 mg Route: P.O. Start: 10:17 AM Stop: 10:17 AM Medication: Plavix Amount: 600 mg Route: P.O. I, the attending physician, have reviewed and verified all procedure medications. Yes, all medications given per verbal order History/Risk Factors Hypertension: Yes Dyslipidemia: No Peripheral Arterial Disease (PAD): Yes Obesity: No Renal Disease: No Tobacco Use: Current/Recent(w/in 1 year) Prior Interventions PCI: No CABG: No Valve Surgery: No Report Signatures Finalized by Corwin Calvin MD on 01/30/2025 08:27 AM
--- NOTE | 2025-01-19 07:20 | PC.NURSE ---
1999- Patient complaining on arm and leg cramp. Per patient he takes magnesium for cramps. Notified Dr. Thomas and received orders to order magnesium. Please see lab results.
--- NOTE | 2025-01-19 08:36 | W.PM.OPSUD ---
Surgery/Procedure H&P Update DATE OF PROCEDURE: January 19, 2025 DATE H&P PERFORMED: 01/18/25 H&P UPDATE INFORMATION: I have reviewed H&P completed within last 30 days, I have examined patient prior to procedure and No changes to prior documentation PREOP DIAGNOSIS: Severe Lifestyle limiting claudication of right common iliac artery PRIMARY INDICATION FOR PROCEDURE: Severe Lifestyle limiting claudication of right common iliac artery PLANNED PROCEDURE: Operation Date: 01/19/25 08:30 Proposed Procedures p Peripheral Diagnostic - Periph Angio Bilat; Peripheral Intervention of the Right Iliac Artery(Bilateral) - Corwin Calvin M.D Peripheral intervention PATIENT REASSESSED PRIOR TO SEDATION, WITH NO CHANGE NOTED: Yes PHYSICAL EXAM: alert, oriented x 3, clear to auscultation bilaterally and regular rate & rhythm AIRWAY EVAL/ANESTHESIA PLAN: normal airway, ASA III, Local Anesthesia, Risks, benefits & alternatives of sedation and/or procedure discussed and Patient agrees to continue as planned ADDITIONAL INFORMATION: Moderate sedation
--- NOTE | 2025-01-19 09:21 | PC.NURSE ---
in construction craft laborer
--- NOTE | 2025-01-19 09:45 | PC.CHAP ---
Pastoral Care Encounter/Spiritual Assessment Type of Contact [] Declined truck engine technician visit [] Patient/Family/Request visit [] Outpatient visit [] Follow-up visit [] Physician referral [] Code/Alert [] Routine visit [] Staff referral [] Actively dying [] Patient sleeping [] Family support [] [x] Out of room [] Palliative care [] [] Receiving care in room [] Pre-surgical visit [] Trauma [] Long length of stay [] ICU visit [] Other: Relational/Emotional Strength [] Patient feels connected with others/family/visitors/staff [] Distress [] Loneliness/isolation [] Abandonment Spirituality of Patient [] Person of Doreen [] Attends Latter Day of their Doreen [] Believes in Prayer [] Reads Bible or Christianity materials [] There are Spiritual issues to be addressed Custom Harvester Interventions [] Prayer [] Active listening [] Non-anxious presence [] Spiritual/emotional support [] Crisis/trauma care [] Spiritual counseling [] Bereavement support [] Provided bereavement packet [] Provided Bible/devotional materials [] Provided toy/stuffed animal, coloring book to patient or family member [] Provided Communion [] Anointing/Deposit [] Salvation [] Completed spiritual assessment [] Other: Impact on Illness or Injury [] Angry [] Fearful [] Anxious [] Often cries [] Exhaustion [] Unable to work [] Unable to attend anglican [] Unable to walk/stand [] Unable to read [] Unable to drive [] Unable to eat/drink [] Unable to sleep [] Unable to be with family [] Patient intubated [] Other: Summary Time spent with patient
--- NOTE | 2025-01-19 09:46 | PC.CHAP ---
Pastoral Care Encounter/Spiritual Assessment Type of Contact [] Declined broadcast director operations visit [] Patient/Family/Request visit [] Outpatient visit [] Follow-up visit [] Physician referral [] Code/Alert [] Routine visit [] Staff referral [] Actively dying [] Patient sleeping [] Family support [] [x] Out of room [] Palliative care [] [] Receiving care in room [] Pre-surgical visit [] Trauma [] Long length of stay [] ICU visit [] Other: Relational/Emotional Strength [] Patient feels connected with others/family/visitors/staff [] Distress [] Loneliness/isolation [] Abandonment Spirituality of Patient [] Person of Doreen [] Attends Restorationist of their Doreen [] Believes in Prayer [] Reads Bible or Scientologist materials [] There are Spiritual issues to be addressed Freight Flagman Interventions [] Prayer [] Active listening [] Non-anxious presence [] Spiritual/emotional support [] Crisis/trauma care [] Spiritual counseling [] Bereavement support [] Provided bereavement packet [] Provided Bible/devotional materials [] Provided toy/stuffed animal, coloring book to patient or family member [] Provided Communion [] Anointing/[place] [] Salvation [] Completed spiritual assessment [] Other: Impact on Illness or Injury [] Angry [] Fearful [] Anxious [] Often cries [] Exhaustion [] Unable to work [] Unable to attend christian [] Unable to walk/stand [] Unable to read [] Unable to drive [] Unable to eat/drink [] Unable to sleep [] Unable to be with family [] Patient intubated [] Other: Summary Time spent with patient
--- NOTE | 2025-01-19 11:12 | PC.NURSE ---
received pt back from cook house laborer around 1045 Pt is alert,oriented, denies any chest pain or any discomfort. Pt has 7 pashto femoral sheath on bilateral groins attached to a pressure bag. Per cook house laborer nurses to keep the femoral line flushed every 15 mins for 2 hrs per doctor Marixa's order. Pt has an angiomax drip running at 31.5 mls/hr. Bilateral sheaths are intact.no bleeding or hematoma. educated pt on bedrest and activity restrictions on his legs and hips, no elevation or lifting his both legs, educated pt to notify nurse ISREAL if any unusual pain,pressure. Pt verbalizes understanding, call light provided to pt. provided pt with urinal as well.
--- NOTE | 2025-01-19 11:19 | USCV_ITS ---
Fredy Butterfield Age: 64 Gender: M : 1960 Exam Date: 01/19/2025 11:42 Ordering Phys: Alva Knight NP Technologist: [place]am [place] [facility] [place] Indication: post sent placement Findings rt stent ends in rt prox iliac lt stent ends in prox prox iliac, normal triphasic flow in both. normal distal ao. Dr Honeycutt scaned with tn post cath. Conclusions Iliac stents bilateral are patent Normal flow in the aorta Salty Monahan MD (Electronically Signed) Final Date: 20 Jan 2025 10:40 S
--- NOTE | 2025-01-19 11:57 | PC.NURSE ---
1045- Flushed bilateral femoral sheaths. 1105- Flushed bilateral femoral sheaths. 1125- Flushed bilateral femoral sheaths. 1140- Flushed bilateral femoral sheaths. 1155- Flushed bilateral femoral sheaths. Bilateral peripheral pulses are palpable +3. Pt denies any pain or discomfort on his legs.
[2025-01-19] MEDS: lisinopril 10 mg Tablet PO (12:57)
[2025-01-19] MEDS: hyDRALAzine 20 mg/mL INJ 1 mL 10 MG IVP (14:45)
[2025-01-19] MEDS: fentaNYL 50 mcg/mL INJ 2mL 25 MCG IVP (14:46)
--- NOTE | 2025-01-19 17:00 | PM.PROC ---
Procedure Note: Date of procedure: 01/19/25 Pre-procedure diagnosis: Severe lifestyle limiting claudication Post-procedure diagnosis: other (Status post bilateral common iliac artery stenting) Procedure: Severe right iliac artery stenosis confirmed with pressure gradient on diagnostic procedure. s/p kissing stents placement bilaterally. Dual antiplatelet therapy IV fluids Performing Provider: Corwin Calvin Estimated blood loss (mL): 10 Condition: stable Disposition: floor Coding Level of Care Code Acute Code for Terrence Castro
--- NOTE | 2025-01-19 20:14 | PC.NURSE ---
Bilateral Femoral Sheaths- Explained procedure to pt. pre procedure hydralazine 10 mg IVP once and Fentanyl 25 mcg Once IVP given prior to sheaths removal. 1500pm-Removed 7 Fr sheath from right femoral artery. No hematoma,swelling or bleeding. Manual pressure held for 20 mins. Pedal pulses are palpable +3. Sheath intact. 1520pm- Removed 7 Fr sheath from left femoral artery by RENETTA Bianchi. No hematoma,swelling or bleeding. Manual pressure held for 20 mins. Pedal pulses are palpable +3. Sheath intact. Call light and urinal provided. Educated pt again on activity restrictions and bedrest until 09:30 PM. to notify nurse ISREAL for any unusual pain, pressure or swelling. Pt verbalizes understanding.
--- NOTE | 2025-01-19 22:00 | PC.NURSE ---
Patient ambulating in [place] with telemetry. Groin sites are intact and soft, no hematoma development. Patient denies any pain in legs.
[2025-01-20 04:00] VITALS: BP 114/72; PULSE 90; RESP 18; TEMP 36.9; O2SAT 94
[2025-01-20 04:36] LABS: Basophils # 0.1 10^3/uL (0.0-0.1); Basophils % 0.8 %; Eosinophils # 0.4 10^3/uL (0.0-0.8); Eosinophils % 4.3 %; Hematocrit 44.7 % (37-53); Lymphocytes # 1.5 10^3/uL (0.8-4.8); Lymphocytes % 17.8 %; Mean Corpuscular HGB Conc 32.7 g/dL (30-55); Mean Corpuscular Hemoglobin 32.2 pg (27-33); Mean Corpuscular Volume 98.7 fl (82-101); Mean Platelet Volume 10.8 fL (7.4-10.4); Monocytes # 0.7 10^3/uL (0.2-0.9); Monocytes % 7.6 %; Neutrophils # 5.91 10^3/uL (1.8-7.7); Neutrophils % 69.4 %; Nucleated Red Blood Cells % 0 %; Platelet Count 182 10^3/cmm (157-399); Red Blood Count 4.53 10^6/uL (3.85-5.65); Red Cell Distribution Width 12.7 % (12.1-15.1); White Blood Count 8.53 10^3/uL (3.29-11.43)
[2025-01-20 04:52] LABS: Anion Gap 14.1 (5-19); Blood Urea Nitrogen 21 mg/dL (8-23); Calcium 8.9 mg/dL (8.5-10.5); Carbon Dioxide 25 mmol/L (22-29); Chloride 105 mmol/L (98-107); Creatinine Clr Calc Pharmacy 58.2216; Glomerular Filtration Rate 50.7 mL/min (90-130); Glucose 133 mg/dL (65-115); Osmolality Calculated 295 mOsm/kg (285-295); Potassium 4.1 mmol/L (3.5-5.1); Sodium 140 mmol/L (136-145)
[2025-01-20 08:00] VITALS: BP 127/82; PULSE 86; RESP 22; TEMP 36.7; O2SAT 96
[2025-01-20] MEDS: aspirin 81 mg EC Tablet PO (08:20)
[2025-01-20] MEDS: clopidogrel 75 mg Tablet PO (08:20)
[2025-01-20] MEDS: lisinopril 10 mg Tablet PO (08:20)
[2025-01-20 09:34] VITALS: BP 121/82; PULSE 99; TEMP 37.1; O2SAT 99
--- NOTE | 2025-01-20 09:43 | P.DS_ITS ---
<Statement entered by Corwin Calvin M.D - 01/21/25 10:24> Patient was evaluated and cared for in conjunction with an advanced practice practitioner.? I personally examined the patient and reviewed the chart and all pertinent data including imaging, telemetry, and laboratory results.? I discussed the patient in detail with the advanced practice practitioner.? Please see? their note for complete discharge summary, testing results and agreed upon plan of care for the patient. GENERAL: Patient is alert, awake and oriented x3. HEART: Regular S1 and S2 LUNGS: Clear to auscultate bilaterally. CENTRAL NERVOUS SYSTEM: Grossly nonfocal. EXTREMITIES: Lower extremities with out edema bilaterally. Patient underwent kissing stent placement of bilateral iliac arteries.P ostprocedure has bounding pedal pulses. The patient stayed stable without any symptoms. Aortic doppler ultrasound was performed to confirm no significant dissection at the edge of the stent. Excellent flow was seen with patent bilateral stents with triphasic flow. Patient had continued hydration as has CKD. On day of discharge, creatinine was at 1.4. Patient was discharged in a stable condition on dual antiplatelet therapy Discharge Providers Date of Admission: 01/18/25 16:04 Date of Discharge: January 20, 2025 Attending Provider at Admission: Corwin Calvin M.D Attending Provider at Discharge: Corwin Calvin M.D Primary Care Provider: Elisa Salgado NP Diagnoses at Discharge Discharge Diagnosis (1) PAD (peripheral artery disease): Status: Acute (2) Hypertension: Status: Acute Qualifiers: Hypertension type: primary hypertension Qualified Code(s): I10 - Essential (primary) hypertension (3) Intermittent claudication: Status: Inactive (4) Chronic kidney disease: Status: Chronic Qualifiers: Chronic kidney disease stage: unspecified stage Qualified Code(s): N18.9 - Chronic kidney disease, unspecified Reason for Visit Reason for Visit: I73.9 Pre-surgery Brief History: This is a very pleasant 64-year-old gentleman who previously had a peripheral angiogram demonstrating severe ostial right common iliac disease with significant gradient across it. Plan was for staged intervention as his kidney function is not normal. He had an echo previously that showed mild aortic stenosis. His main complaint is claudication in the right buttocks and hip area with a few steps that is relieved with rest. He does not have any wounds. No signs of ischemia. Palpable PT bilaterally. CONCETTA in the past was 0.78.Patient was admitted for prehydration prior to procedure. This will be performed tomorrow.Denies any lower extremity pain at this time. Hospital Course Hospital Course Patient underwent peripheral angiogram. He had severe right iliac artery stenosis confirmed with pressure gradient on diagnostic procedure. s/p kissing stents placement bilaterally. He tolerated procedure well without complications. US was done at bedside to rule out dissection, but this was a calcium plaque. Pulses were palpable on discharge. He had no claudication in lower extremities. He was discharged home in stable to improved condition. Physical Exam Narrative: General: No apparent distress, healthy appearing, well nourished HENMT: normoceophalic Neck: No carotid bruit bilaterally Muskuloskeletal: Full ROM Lymphatic: no lymphedema noted Respiratory: Normal respiratory effort, clear to auscultation bilaterally throughout all lung keen, no use of accessory muscles Cardio: No JVD, regular rate, regular rhythm, S1 S2 normal, no murmurs, peripheral pulses 2+ radial palpated bilaterally, 2+ PT palpated bilaterally GI: Normal to inspection, nondistended Extremities: Full ROM, normal, normal capillary refill, no cyanosis or edema Neuro: Alert and oriented x4, no focal motor deficits Psych: Affect normal, denies suicidal ideation, mental status grossly normal Skin: No rashes or lesions noted, no wounds Discharge Data Studies Completed and Pending Pending at discharge Category Date Time Status INSPECTOR AND CLERK request for service Routine Exams 01/19/25 06:19 [place] [id number] Routine Ultrasound 01/19/25 11:19 Taken Laboratory Results WBC 8.53 10^3/uL (3.29-11.43) 01/20/25 03:49 RBC 4.53 10^6/uL (3.85-5.65) 01/20/25 03:49 Hgb 14.60 g/dL (11.27-16.99) 01/20/25 03:49 Hct 44.7 % (37-53) 01/20/25 03:49 MCV 98.7 fl (82-101) 01/20/25 03:49 MCH 32.2 pg (27-33) 01/20/25 03:49 MCHC 32.7 g/dL (30-55) 01/20/25 03:49 RDW 12.7 % (12.1-15.1) 01/20/25 03:49 Plt Count 182 10^3/cmm (157-399) 01/20/25 03:49 MPV 10.8 fL (7.4-10.4) H 01/20/25 03:49 Neut % (Auto) 69.4 % 01/20/25 03:49 Lymph % (Auto) 17.8 % 01/20/25 03:49 Banner % (Auto) 7.6 % 01/20/25 03:49 Eos % (Auto) 4.3 % 01/20/25 03:49 Baso % (Auto) 0.8 % 01/20/25 03:49 Neut # (Auto) 5.91 10^3/uL (1.8-7.7) 01/20/25 03:49 Lymph # (Auto) 1.5 10^3/uL (0.8-4.8) 01/20/25 03:49 Banner # (Auto) 0.7 10^3/uL (0.2-0.9) 01/20/25 03:49 Eos # (Auto) 0.4 10^3/uL (0.0-0.8) 01/20/25 03:49 Baso # (Auto) 0.1 10^3/uL (0.0-0.1) 01/20/25 03:49 Nucleated RBC % (auto) 0 % 01/20/25 03:49 Nucleated RBCs # 0.0 /100WBC 01/20/25 03:49 Sodium 140 mmol/L (136-145) 01/20/25 03:49 Potassium 4.1 mmol/L (3.5-5.1) 01/20/25 03:49 Chloride 105 mmol/L (98-107) 01/20/25 03:49 Carbon Dioxide 25 mmol/L (22-29) 01/20/25 03:49 Anion Gap 14.1 (5-19) 01/20/25 03:49 BUN 21 mg/dL (8-23) 01/20/25 03:49 Creatinine 1.4 mg/dL (0.7-1.2) H 01/20/25 03:49 GFR Calculation 50.7 mL/min (90-130) L 01/20/25 03:49 Glucose 133 mg/dL (65-115) H 01/20/25 03:49 Calculated Osmolality 295 mOsm/kg (285-295) 01/20/25 03:49 Calcium 8.9 mg/dL (8.5-10.5) 01/20/25 03:49 Magnesium 2.1 mg/dL (1.7-2.3) 01/18/25 17:25 Total Bilirubin 0.5 mg/dL (0.15-1.2) 01/18/25 17:25 AST 21 U/L (0-40) 01/18/25 17:25 ALT 11 U/L (0-41) 01/18/25 17:25 Alkaline Phosphatase 81 U/L (40-130) 01/18/25 17: Total Protein 7.2 g/dL (6.6-8.7) 01/18/25 17: Albumin 4.3 g/dL (3.5-5.2) 01/18/25 17: Globulin 2.9 g/dL (1.3-4.6) 01/18/25 17:25 Procedures Performed Date of procedure: 01/19/25 Pre-procedure diagnosis: Severe lifestyle limiting claudication Post-procedure diagnosis: other (Status post bilateral common iliac artery stenting) Procedure: Severe right iliac artery stenosis confirmed with pressure gradient on diagnostic procedure. s/p kissing stents placement bilaterally. Dual antiplatelet therapy IV fluids Performing Provider: Corwin Calvin Estimated blood loss (mL): 10 Condition: stable Disposition: floor Vitals Last Vital Signs Temp 98.8 F 01/20/25 09:34 Pulse 99 01/20/25 09:34 Resp 22 H 01/20/25 08:00 BP 121/82 01/20/25 09:34 Pulse Ox 99 01/20/25 09:34 O2 Del Method Room Air 01/20/25 08:00 Discharge Plan Discharge Patient Disposition: Home Condition: Stable Prescriptions: New clopidogrel 75 mg Tablet 75 mg PO DAILY Qty: 90 0RF Continued epinephrine 0.3 mg/0.3 mL auto-injector 0.3 mg IM ONCE PRN (Reason: anaphylaxis) Qty: 2 0RF Rx Instructions: may repeat x 1 in 10 min if needed. omeprazole 20 mg tablet,delayed release (DR/EC) 20 mg PO DIRECTED Rx Instructions: Take on tab every other day cyclobenzaprine 10 mg tablet 10 mg PO TID PRN (Reason: muscle spasm) Qty: 30 0RF famotidine 40 mg tablet 40 mg PO DAILY Qty: 90 3RF lisinopril 10 mg tablet 10 mg PO DAILY 90 Days Qty: 90 1RF aspirin 81 mg capsule 81 mg PO DAILY Qty: 30 0RF fexofenadine 180 mg Tablet 180 mg PO DAILY Discontinued cilostazol 50 mg tablet 50 mg PO BID Qty: 180 3RF Discharge Orders: Discharge Order (Routine); Ordered 01/20/25 Ordered By: Alva Knight Referrals: Monet Lopez FNP [Nurse Practitioner, Cardiology] - 01/30/25 8:30 am Elisa Salgado NP [Primary Care Provider, Family Practice] - 01/26/25 10:00 am Discharge Diet: Low Cholesterol and Low Fat Patient Instructions: Clopidogrel (By mouth) (Plavix), Peripheral Vascular Stent Placement (DC), Peripheral Vascular Angioplasty (DC), Opioid Safety, Post Angiogram Home Care Instructions Activity Restrictions/Additional Instructions: Discussed with patient no heavy lifting more than a gallon of milk as well as going up or down steps for 3 days. No driving for 3 days. Monitor for and report signs or symptoms of bleeding. Monitor for and report s/s of infection such as fever 101 or greater, swelling, redness or pain to the groin. Plan of Treatment: Continue dual antiplatelet therapy with aspirin and plavix. F/U in the clinic in 1 week with labs. Discharge Attestations Time Spent in Discharge Care*: less than 30 min Quality Metrics Clinical Quality Measures [ No reported AMI, CVA or VTE this stay] Coding Level of Care Code Acute Code for Chg Fwd Diagnoses PAD (peripheral artery disease) I73.9 Primary hypertension I10 Hypertension type: primary hypertension Intermittent claudication I73.9 Chronic kidney disease, unspecified CKD stage N18.9 Chronic kidney disease stage: unspecified stage
== END 2025-01-20 10:33 | disposition home or self-care (01) ==
PROVIDERS: Nurse Practitioner Family; Admitting Provider Internal Medicine; PCP Nurse Practitioner Family; Visit Provider Internal Medicine
DX: I70.211 Atherosclerosis of native arteries of extremities with intermittent claudication, right leg (principal); I12.9 Hypertensive chronic kidney disease with stage 1 through stage 4 chronic kidney disease, or unspecified chronic kidney disease; N18.9 Chronic kidney disease, unspecified; K21.9 Gastro-esophageal reflux disease without esophagitis; Z79.82 Long term (current) use of aspirin; F17.290 Nicotine dependence, other tobacco product, uncomplicated
CPT/HCPCS: 36415; 37221; 51702; 75625; 80048; 80053; 83735; 85025; 93976; 96374; 96375; 96376; 99152; 99153; C1725; C1769; C1876; C1887; C1894; C9765; G0378; G0379; J0360; J0583; J1200; J2250; J3010; J7030; J9999; Q9967

== ENCOUNTER → 2025-01-30 08:29 | Outpatient (BNVA) | payer MEDICARE, SELFPAY | PROVIDERS: PCP Nurse Practitioner Family; Visit Provider Nurse Practitioner Family | DX: I73.9 Peripheral vascular disease, unspecified (principal); Z09 Encounter for follow-up examination after completed treatment for conditions other than malignant neoplasm; I10 Essential (primary) hypertension; R42 Dizziness and giddiness; K21.9 Gastro-esophageal reflux disease without esophagitis; Z79.01 Long term (current) use of anticoagulants; Z79.82 Long term (current) use of aspirin; F17.290 Nicotine dependence, other tobacco product, uncomplicated | CPT/HCPCS: 36415; 80048; 99213 ==

== ENCOUNTER → 2025-03-22 10:00 | Outpatient (BNVA) | payer MEDICARE, SELFPAY | PROVIDERS: PCP Nurse Practitioner Family; Visit Provider Nurse Practitioner Family | DX: M25.562 Pain in left knee (principal); G89.29 Other chronic pain | CPT/HCPCS: 73562 ==

== ENCOUNTER 2025-03-29 08:16 | Outpatient (CLI) | payer MEDICARE, SELFPAY ==
--- NOTE | 2025-03-29 08:45 | MR_ITS ---
WS: [id number] MRI LEFT KNEE NONCONTRAST TECHNIQUE: Axial PD, coronal PD fat sat, coronal PD, sagittal PD, and sagittal PD fat-sat images obtained. CLINICAL INFORMATION: M25.562 - Pain in left knee COMPARISON: None. FINDINGS: Moderate tricompartmental arthritis. Small suprapatellar effusion. Distal quadriceps and patellar tendons are intact. Patellar enthesophyte. Medial and lateral patellar retinaculum are intact. Advanced chondromalacia patella with subchondral edema worse involving the medial patellar facet with subchondral edema. Trace prepatellar soft tissue edema. Nondisplaced fracture involving the medial patella facet at the medial retinacular insertion. No visualized intra- articular loose bodies. Recommend correlation for history of patellar dislocation or recent trauma. ACL and PCL are intact. Medial and lateral collateral ligaments are intact. Normal fibular head. Chronic desiccation and thinning of the medial and lateral meniscus. Diffuse edema involving the medial tibial plateau. Small osteochondral fracture along the anterior medial tibial plateau peripherally with small osteochondral fragment. Horizontal undersurface tear involving the medial meniscus posterior horn extending to the free edge and meniscal root. Chronic intrasubstance signal abnormality lateral meniscus. Medial and lateral collateral ligaments appear intact. MR/MR knee LT wo con* [id number] IMPRESSION: 1. Moderate tricompartmental arthritis worse in the medial joint compartment. 2. Diffuse edema involving the medial tibial plateau with small osteochondral fracture fragment measuring 3.3 mm. Recommend correlation for recent contusion or trauma. Edema may be degenerative 3. Complex horizontal and undersurface tear involving the medial meniscus post erior horn extending to the free edge and meniscal root 4. Chronic intrasubstance signal abnormality involving the lateral meniscus. 5. ACL and PCL appear intact. 6. Grade IV chondromalacia patella with chondral fissuring and subchondral fra cture involving the medial patellar facet. No visualized displaced fragments. R ecommend correlation for history of patellar dislocation or patella trauma. Outbridge grading: grade IV: full-thickness cartilage loss with underlying bone reactive changes
== END 2025-03-29 08:17 | disposition home or self-care (01) ==
LOC: RAD 08:17
PROVIDERS: PCP Nurse Practitioner Family; Visit Provider Nurse Practitioner Family
DX: M17.11 Unilateral primary osteoarthritis, right knee (principal); M22.42 Chondromalacia patellae, left knee
CPT/HCPCS: 73721

== ENCOUNTER → 2025-05-08 15:05 | Outpatient (BNVA) | payer MEDICARE, SELFPAY | PROVIDERS: PCP Nurse Practitioner Family; Visit Provider Internal Medicine | DX: I73.9 Peripheral vascular disease, unspecified (principal); R07.89 Other chest pain; I65.29 Occlusion and stenosis of unspecified carotid artery; K21.9 Gastro-esophageal reflux disease without esophagitis; R42 Dizziness and giddiness; I10 Essential (primary) hypertension; I35.0 Nonrheumatic aortic (valve) stenosis; Z79.02 Long term (current) use of antithrombotics/antiplatelets; Z79.82 Long term (current) use of aspirin; F17.290 Nicotine dependence, other tobacco product, uncomplicated | CPT/HCPCS: 99214 ==

== ENCOUNTER → 2025-06-05 09:39 | Outpatient (BNVA) | payer MEDICARE, SELFPAY | PROVIDERS: PCP Nurse Practitioner Family; Visit Provider Specialist | DX: M17.12 Unilateral primary osteoarthritis, left knee (principal) | CPT/HCPCS: 73560; 73565; 99214 ==